=== PATIENT | male | born 1985 | race Caucasian/White ===

== ENCOUNTER 2018-12-19 10:06 | Emergency (ER) | payer OTHER ==
[2018-12-19] MEDS ORDERED: ceFAZolin 1 GM Vial IM ONE (10:28)
[2018-12-19] MEDS ORDERED: Water For Injection, Sterile 20 ML ONE (10:34)
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
== END 2018-12-19 11:35 ==
LOC: MW.ED 10:06
DX: S40.022A Contusion of left upper arm, initial encounter (principal); S59.912A Unspecified injury of left forearm, initial encounter; W20.8XXA Other cause of strike by thrown, projected or falling object, initial encounter; Y99.0 Civilian activity done for income or pay
CPT/HCPCS: 73020; 73060; 73090; 96372; 99284; J0690